=== PATIENT | male | born 1955 | race Two or more races ===

== ENCOUNTER 2025-02-12 11:06 | Emergency (ER) | payer MEDICARE, SELFPAY ==
--- NOTE | 2025-02-12 11:10 | CT_ITS ---
WS: [id number] CT HEAD NONCONTRAST HISTORY: Encephalopathy, altered mental status TECHNIQUE: Contiguous axial imaging performed through the brain. Bone and soft tissue windows. Sagittal and coronal reformats reviewed. All CT scans at [facility] use at least one of these dose optimization techniques: automated exposure control; mA and/or kV adjustment per patient size (includes targeted exams where dose is matched to clinical indication); or iterative reconstruction. DLP: 1075.08 mGy.cm COMPARISON: None available. No acute intracranial hemorrhage, midline shift or mass effect. Mild atrophy and moderate small vessel disease. No prior infarcts. There is a small lacunar infarct LEFT periventricular white matter. Ventricles: Normal size with no hydrocephalus. No intra displacement of cerebellar tonsils. Paranasal sinuses: As visualized are clear. Mastoid air cells: Well pneumatized. Calvarium and scalp: Skull is intact with no soft tissue edema or swelling. CT/CT head wo con* [id number] IMPRESSION: 1. No acute intracranial hemorrhage or edema. 2. Mild cerebral and cerebellar atrophy. 3. Moderate small vessel disease.
[2025-02-12 11:11] VITALS: BP 162/65; PULSE 87; RESP 16; TEMP 37.1; O2SAT 100
--- NOTE | 2025-02-12 11:11 | ED_ITS ---
HPI - General Adult 2 General: Chief complaint: Weakness Stated complaint: ams Time Seen by Provider: 02/12/25 11:08 History of Present Illness: 69-year-old man with a history of end-st age renal disease on dialysis who presents to the emergency room by ambulance after dialysis with concerns for confusion. He was not confused today. However the reports that over the last couple weeks when he would complete dialysis he would be mildly confused for about 5 minutes and then improved. He had refused to go to the emergency room until today. However today he has no altered mental status. No fevers. No cough. No chest pain. Related Data Allergies Allergy/AdvReac Type Severity Reaction Status Date / Time No Known Allergies Allergy Verified 02/12/25 11:16 Review of Systems 2 Narrative: Constitutional symptoms: Negative except as documented in HPI. Skin symptoms: Negative except as documented in HPI. Eye symptoms: Negative except as documented in HPI. ENMT symptoms: Negative except as documented in HPI. Respiratory symptoms: Negative except as documented in HPI. Cardiovascular symptoms: Negative except as documented in HPI. Gastrointestinal symptoms: Negative except as documented in HPI. Genitourinary symptoms: Negative except as documented in HPI. Musculoskeletal symptoms: Negative except as documented in HPI. Neurologic symptoms: Negative except as documented in HPI. Psychiatric symptoms: Negative except as documented in HPI. Endocrine symptoms: Negative except as documented in HPI. Physical Exam 2 Narrative: EXAM NARRATIVE: General: Alert, no acute distress. Skin: Warm, dry. Head: Normocephalic, atraumatic. Neck: Supple, trachea midline. Eye: Extraocular movements are intact. Ears, nose, mouth and throat: mucosa moist. Cardiovascular: Regular, Normal peripheral perfusion. Left biceps area AV fistula Respiratory: Lungs are clear to auscultation, respirations are non-labored, breath sounds are equal, Symmetrical chest wall expansion. Gastrointestinal: Soft, Nontender, Non distended Musculoskeletal: Normal ROM, no deformity. Neurological: Alert and oriented, No focal neurological deficit observed. Psychiatric: Cooperative, appropriate mood & affect. Course 2 Vital Signs: Vital signs: Vital Signs Temperature 98.7 F 02/12/25 11:11 Pulse Rate 79 02/12/25 12:11 Respiratory Rate 16 02/12/25 12:11 Blood Pressure 162/65 02/12/25 11:23 Pulse Oximetry 100 02/12/25 12:11 Oxygen Delivery Me thod Room Air 02/12/25 12:11 MDM - General Adult Medical Decision Making Medical decision making: Differential diagnosis including but not limited to and based on the above HPI, review of systems and physical exam: In this patient with altered mental status: Stroke. Hypoglycemia. Metabolic encephalopathy. Infections such as pneumonia, urinary tract infection, Covid-19, Influenza. Electrolyte abnormalities such as hypernatremia. Renal failure / uremia. Hepatic encephalopathy. Hypoxemia. Hypercapnic respiratory failure. Psychosis. Drug or alcohol intoxication. Medication overdose. Orders placed to evaluate differential diagnosis based on the above differential, HPI and physical exam Lab Review: Laboratory results were reviewed and interpreted by myself the emergency room physician. No leukocytosis. Hemoglobin is 9.8 which would be expected in the dialysis patient. Does not require acute transfusion. BUN and creatinine are 14 and 2.1 which again would be expected in a dialysis patient. Potassium is a little bit low at 3.1 and again just after dialysis this would be expected. CT head: No acute intracranial process. no intracranial hemorrhage, no evidence of infarct. no evidence of acute fracture.This was reviewed and interpreted by myself the ER physician. I reviewed the patient's medical record. Reexamination: Patient remained stable. No increased work of breathing. No altered mental status. No focal motor deficits. Assessment and plan: End-stage renal disease on dialysis Episodes of altered mental status - Discharged home - Discussed findings and plan with patient. Answered any questions. - All laboratory values were reviewed and interpreted personally by myself, the ER physician - All imaging was reviewed and interpreted personally by myself, the ER physician. - Evaluation and treatment of this problem were appropriate in the emergency setting Lab Data 02/12/25 11:46 02/12/25 11:[address] 02/12/25 11:10 IMPRESSION: 1. No acute intracranial hemorrhage or edema. 2. Mild cerebral and cerebellar atrophy. 3. Moderate small vessel disease. Laboratory Results WBC 5.78 10^3/uL (3.29-11.43) 02/12/25 11:46 RBC 3.24 10^6/uL (3.85-5.65) L 02/12/25 11:46 Hgb 9.80 g/dL (11.27-16.99) L 02/12/25 11:46 Hct 29.4 % (37-53) L 02/12/25 11:46 MCV 90.7 fl (82-101) 02/12/25 11:46 MCH 30.2 pg (27-33) 02/12/25 11:46 MCHC 33.3 g/dL (30-55) 02/12/25 11:46 RDW 13.1 % (12.1-15.1) 02/12/25 11:46 Plt Count 220 10^3/cmm (157-399) 02/12/25 11:46 MPV 9.0 fL (7.4-10.4) 02/12/25 11:46 Neut % (Auto) 66.6 % 02/12/25 11:46 Lymph % (Auto) 20.4 % 02/12/25 11:46 [place] % (Auto) 9.0 % 02/12/25 11:46 Eos % (Auto) 2.6 % 02/12/25 11:46 Baso % (Auto) 0.9 % 02/12/25 11:46 Neut # (Auto) 3.85 10^3/uL (1.8-7.7) 02/12/25 11:46 Lymph # (Auto) 1.2 10^3/uL (0.8-4.8) 02/12/25 11:46 [place] # (Auto) 0.5 10^3/uL (0.2-0.9) 02/12/25 11:46 Eos # (Auto) 0.2 10^3/uL (0.0-0.8) 02/12/25 11:46 Baso # (Auto) 0.1 10^3/uL (0.0-0.1) 02/12/25 11:46 Nucleated RBC % (auto) 0 % 02/12/25 11:46 Nucleated RBCs # 0.0 /100WBC 02/12/25 11:46 Sodium 139 mmol/L (136-145) 02/12/25 11:46 Potassium 3.1 mmol/L (3.5-5.1) L 02/12/25 11:46 Chloride 95 mmol/L (98-107) L 02/12/25 11:46 Carbon Dioxide 34 mmol/L (22-29) H 02/12/25 11:46 Anion Gap 13.1 (5-19) 02/12/25 11:46 BUN 14 mg/dL (8-23) 02/12/25 11:46 Creatinine 2.1 mg/dL (0.7-1.2) H 02/12/25 11:46 GFR Calculation 31.5 mL/min (90-130) L 02/12/25 11:46 Glucose 126 mg/dL (65-115) H 02/12/25 11:46 Calculated Osmolality 290 mOsm/kg (285-295) 02/12/25 11:46 Calcium 8.6 mg/dL (8.5-10.5) 02/12/25 11:46 Total Bilirubin 0.3 mg/dL (0.15-1.2) 02/12/25 11:46 AST 15 U/L (0-40) 02/12/25 11:46 ALT 12 U/L (0-41) 02/12/25 11:46 Alkaline Phosphatase 136 U/L (40-130) H 02/12/25 11:46 Total Protein 7.0 g/dL (6.6-8.7) 02/12/25 11:46 Albumin 3.8 g/dL (3.5-5.2) 02/12/25 11:46 Globulin 3.2 g/dL (1.3-4.6) 02/12/25 11:46 All radiology interpretation(s) finalized by discharge Discharge Plan Discharge Patient Disposition: Home Clinical Impression: Altered mental status, End stage renal disease on dialysis Condition: Stable Discharge Orders: Discharge ED (Routine); Ordered 02/12/25 Ordered By: Harriet Hensley Discharge Diet: Usual diet Discharge Activity: Increase activity as tolerated Patient Instructions: Opioid Safety, Pain Management, Patient Portal & Oleg Instructions Activity Restrictions/Additional Instructions: Thank you for choosing [facility] for your healthcare needs today. You have been screened and evaluated and felt safe for discharge. Health conditions do change or evolve sometimes and as such it is important that you follow up with your Primary Doctor to be re checked, 3-5 days is a general good time frame for follow up. You are always welcome to return to the ED for re assessment if your symptoms are worsening or you have new concerns Print Language: Slovak Coding Level of Care Code ED Circulation Director for Carson Randle
--- NOTE | 2025-02-12 11:15 | ECG_ITS ---
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 Measurements Intervals [place] Rate: 86 P: 58 MD: 192 QRS: 63 QRSD: 104 T: 116 QT: 430 QTc: 515 Interpretive Statements SINUS RHYTHM WITH OCCASIONAL SUPRAVENTRICULAR PREMATURE COMPLEXES POSSIBLE LEFT ATRIAL ENLARGEMENT [-0.1mV P-WAVE IN V1/V2] POSSIBLE RIGHT VENTRICULAR CONDUCTION DELAY [RSR (QR) IN V1/V2] LEFT VENTRICULAR HYPERTROPHY AND ST-T CHANGE [VOLTAGE CRITERIA PLUS ST/T ABNORMALITY] INFERIOR MYOCARDIAL INFARCTION , PROBABLY OLD [40+ ms Q WAVE AND/OR ST/T ABNORMALITY IN II/aVF] No previous ECG available for comparison Electronically Signed On 02-14-2025 08:46:27 CDT by Evangelista Radford M.D. [email or web address] [id number]
[2025-02-12 11:23] VITALS: BP 162/65; PULSE 82; RESP 18; O2SAT 100
--- OUTSIDE RECORDS SUMMARY | 2025-02-12 11:38 | XMS_ITS | Encounter Summary ---
Author Organization [facility], [facility] Address [address] [place] [address] Phone Care Team Providers Care Tug Master Name Role Phone Bc Sadler MD Primary Care Provider [phone] Encounter Details Date Type Department Care Team (Late st Contact Info) Description 02/10/2025 [facility] [address] [place] [address] Malia Shen MD [address] [place] [address] End stage renal disease; Dependence on renal dialysis Social History Tobacco Use Types Packs/Day Years Used Date Smoking Tobacco: Never Smokeless Tobacco: Never Alcohol Use Standard Drinks/Week Comments Never 0 (1 standard drink = 0.6 oz pur e alcohol) Sex and Gender Information Value Date Recorded Sex Assigned at Not on file Legal Sex Male 10:12 AM EDT Gender Identity Not on file Sexual Orientation Not on file documented as of this encounter Miscellaneous Notes * Dialysis Note - Malia Shen MD - 02/10/2025 12:00 AM CDT Patient: Rashel العراقي, 1955, 69y, M Dialysis Location: [facility] Attending Hand Inspector: Malia Shen Service Date: 02/10/2025 Service Provider: Malia Shen MD I met face to face with the patient today. OVERVIEW The patient presented with ESRD on dialysis Primary cause of renal failure: Type 2 diabetes mellitus with diabetic chronic kidney disease Comments: He has been feeling bad at the end of dialysis and the next day. He has been having fluidchallenges that are making him feel bad. Not to fluid challenge and he is feeling better. Will decrease time by 15 minutes as kt/v is very good. Repeat kt/v after time change. Medications and labs reviewed. LAST HOSPITALIZATION Discharge Diagnosis: I25.810 Atherosclerosis of coronary artery bypass graft(s) without angina pectoris Admission Date 01/17/24 Discharge Date 01/31/24 DIALYSIS PRESCRIPTION IHD 3x Week Start date: 01/29/25 Dialyzer: 180NRe Optiflux BFR: 450 DFR: Autoflow 2 Potassium: 2.0 Sodium: 138 EDW: 52.3 Duration: 4:00 Calcium: 2.5 Bicarb: 38 Rx updated on: 01/29/2025 TREATMENT ASSESSMENT Comments: Stable BP Stand Pre 02/07/2025: 155/71 02/05/2025: 161/78 02/03/2025: 153/73 BP Sit Pre 02/07/2025: 163/80 02/05/2025: 124/68 02/03/2025: 159/79 BP Stand Post 02/07/2025: 143/58 02/05/2025: 138/65 02/03/2025: 156/69 BP Sit Post 02/07/2025: 147/68 02/05/2025: 135/67 02/03/2025: 139/59 Tx Duration 02/07/2025: 4:00 02/05/2025: 4:02 02/03/2025: 3:40 Missed Treatments 1 - last 30 days 2 - last 60 days 01/13 - recent FLUID ASSESSMENT Comments: Stable Asa diana EDW (kg) 02/07/2025: 52.3 02/05/2025: 52.3 02/03/2025: 52.3 Weight Pre (kg) 02/07/2025: 53.0 02/05/2025: 52.8 02/03/2025: 53.6 Weight Post (kg) 02/07/2025: 51.3 02/05/2025: 51.8 02/03/2025: 52.7 PWV (kg) 02/07/2025: -1.0 02/05/2025: -0.5 02/03/2025: 0.4 UF Rate (mL/kg/hr) 02/07/2025: 8.3 02/05/2025: 4.8 02/03/2025: 4.7 ADEQUACY ASSESSMENT Comments: Stable trend As above spKt/V, URR 01/27/2025: 2.26, 85.0 01/03/2025: 1.93, 82.0 12/04/2024: 1.96, 81.0 ACCESS ASSESSMENT Access Type: AVGraft Access SubType: Synthetic - Standard (PTFE) Access Status: Active (In Use) - 09/18/2023 Access Location: Left Upper Arm Created: 09/18/2023 Flow 12/02/2024: 1700 11/14/2024: 1330 09/13/2024: 1238 Vascular access reviewed. Current access is permanent and functioning well. ANEMIA ASSESSMENT Comments: On IV iron and SARAI protocol HGB, TSAT 02/05/2025: 9.6, - 01/27/2025: 9.3, 38.0 01/08/2025: 10.0, - Ferritin 12/04/2024: 697.0 08/28/2024: 758.0 Iron Sucrose (Venofer) (mg) 02/03/2025: 50 01/27/2025: 50 01/06/2025: 50 BMM ASSESSMENT Comments: Phos is better. Monitor trend. PTH stable. On calcitriol. PTH, Intact 12/04/2024: 547.0 08/28/2024: 548.0 Calcium, Phosphorus 01/27/2025: 8.6, 5.2 01/06/2025: 8.4, 4.9 12/04/2024: 8.5, 6.0 Vitamin D (Calcitriol) Oral (mcg) 02/07/2025: 0.5 02/05/2025: 0.5 02/03/2025: 0.5 NUTRITION ASSESSMENT Comments: Stable. Potassium, Albumin 01/27/2025: 5.3, 3.7 01/06/2025: 4.9, 3.7 12/04/2024: 4.7, 3.7 eNPCR 01/03/2025: 0.61 12/04/2024: 1.4 11/04/2024: 1.82 DIAGNOSIS Chief Complaint: N18.6 End stage renal disease Comments: 05/15/2024: Following problem list carried forward from rounding notes from previous facility in [place]: problem list: ESRD: HD TTS, due to hypertension -. Coronary artery disease: Status post NSTEMI, and CABG x3 on 01/21/2024 , -. Mitral regurgitation: Initially severe on TTE but intraoperatively was 1+ so no intervention done -. Paroxysmal atrial fibrillation: -. Started on amiodarone and Toprol and Eliquis twice daily -. CHF: EF of 25 to 30%, due to ischemic cardiomyopathy, at some point we need ICD placement versuslife vest -. Hypertension: On medication -. Colostomy: Family social history: No family history of ESRD Does not smoke or drink Patient data updated 02/10/2025 at 10:39 AM Signed By: Malia Shen MD on 02/10/2025 10:42:26 AM documented in this encounter Plan of Treatment Not on file documented as of this encounter Visit Diagnoses Diagnosis End stage renal disease Dependence on renal dialysis documented in this encounter Care Teams Tug Master Relationship Specialty Start Date End Date Bc Sadler MD [address] [facility] [address] [place] [phone] PCP - General Nephrology 12/05/23 documented as of this encounter
--- OUTSIDE RECORDS SUMMARY | 2025-02-12 11:38 | XMS_ITS | Encounter Summary ---
Author Organization [facility], [facility] Address [address] [place] [address] Phone Care Team Providers Care Binding Nicker Name Role Phone Bc Sadler MD Primary Care Provider [phone] Encounter Details Date Type Department Care Team (Late st Contact Info) Description 02/05/2025 Orders Only [facility] [address] [place] [address] Malia Shen MD [address] [place] [address] Social History Tobacco Use Types Packs/Day Years [...] on file documented as of this encounter Plan of Treatment Not on file documented as of this encounter Procedures Procedure Name Priority Date/Time Associated Diagnosis Comments HEMATOLOGY Routine 02/05/2025 documented in this encounter Results * (ABNORMAL) HEMATOLOGY (02/05/2025) Hemoglobin 9.6(L) 14.0 - 18.0 g/dL [facility] Hemoglobin x 3 28.8(L) 42.0 - 54.0 % [facility] Reticulocyte Hemoglobin 31.4 25.4 - 31.8 pg [facility] 02/05/2025 02/06/2025 9:4 7 AM CDT Narrative [facility] - 02/06/2025 Unless otherwise specified, test(s) performed at: [facility], [address] [place], [place] [id number] COREMAKER PIPE: Abel Robins M.D. For any questions, please call customer service at FREQUENCY:OTHER Resulting Agency Comment Specimen source: Blood Malia Shen MD LAB BLOOD ORDERABLES Final Re sult [facility] See order comments or contact performing lab Unknown, [place] documented in this encounter Visit Diagnoses Not on filedocumented in this encounter Care Teams Binding Nicker Relationship Specialty Start Date End Date Bc Sadler MD [address] [address] PCP - General Nephrology 12/05/23 documented as of this encounter
--- OUTSIDE RECORDS SUMMARY | 2025-02-12 11:38 | XMS_ITS | Encounter Summary ---
Author Organization [facility] Address [address] [facility] [address] [place] [address] Phone Care Team Providers Care Sql Database Developer Name Role Phone Bc Sadler MD Primary Care Provider [phone] Reason for Visit * Reason Comments Med Refill Encounter Details Date Type Department Care Team (Late st Contact Info) Description 02/27/2024 Refill [facility] [address] [facility] [address] [place] [address] Bc Sadler MD [address] [facility] [address] [place] [address] Social History Tobacco Use Types Packs/Day Years [...] documented as of this encounter Visit Diagnoses Not on filedocumented in this encounter Care Teams Sql Database Developer Relationship Specialty Start Date End Date Bc Sadler MD [address] [facility] [address] [place] [address] PCP - General Nephrology 12/05/23 documented as of this encounter
--- OUTSIDE RECORDS SUMMARY | 2025-02-12 11:38 | XMS_ITS | Clinical Summary ---
Author Organization 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 4 Active sodium bicarbonate 650 mg tablet Take 650 mg by mouth 2 times daily. 4 Active metoprolol succinate (TOPROL XL) 25 mg Extended Release 24 hour tablet Take 25 mg by mouth daily. Active metoprolol succinate (TOPROL XL) 25 mg Extended Release 24 hour tablet Take 25 mg by mouth 2 times daily. 3 Active aspirin (ECOTRIN EC) 81 mg Tablet, Delayed Release (E.C.) Take 81 mg by mouth daily. Active clopidogreL (PLAVIX) 75 mg Tablet Take 75 mg by mouth daily. 3 Active amLODIPine (NORVASC) 5 mg tablet Take 6 mg by mouth daily. 3 Active apixaban (Eliquis) 2.5 mg tablet Take 2.5 mg by mouth 2 times daily. Active amiodarone (CORDARONE) 200 mg tablet Take 200 mg by mouth daily. Active dorzolamide-cristian loL (COSOPT) 22.3-6.8 mg/mL solution Administer 1 Drop in right eye 2 times daily. 10 mL 1 5 Active brimonidine (ALPHAGAN) 0.2 % solution Administer 1 Drop in right eye every 8 hours. 5 mL 1 5 Active latanoprost (XALATAN) 0.005 % solution Administer 1 Drop in right eye daily at bedtime. 2.5 mL 1 5 Active prednisoLONE acetate (Pred Forte) 1 % suspension Administer 1 Drop in left eye 4 times daily. 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 1 Drop Left Eye ONE TIME ONLY 01/09/2025 Active Active Problems No known active problems Encounters Date Type Department Care Team Description 01/13/2025 External Device Data STL ABSTRACTION Provider, Abstract 01/09/2025 10:00 AM CDT Office Visit [facility] [place] [address] [place] [phone] Mary Rosa MD 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) 12/24/2024 7:20 AM CDT Office Visit [facility] [place] [address] [place] [phone] Mary Rosa MD 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) 12/23/2024 12:45 PM CDT - 12/23/2024 2:10 PM CDT Surgery [facility] [place] [address] [place] [phone] Mary Rosa MD PARS PLANA VITRECTOMY WITH LASER 12/23/2024 11:39 AM CDT Anesthesia Event [facility] [address] [place] [phone] Hernesto Man MD 12/23/2024 8:12 AM CDT - 12/23/2024 12:50 PM CDT Hospital Encounter [facility] [address] [place] [phone] Mary Rosa MD Rhegmatogenous retinal detachment of left eye Discharge Disposition: Home or Self Care 12/19/2024 Telephone [facility] [place] [address] [phone] Mary Rosa MD Surgery Talk 12/18/2024 Telephone [facility] [place] [address] [phone] Mary Rosa MD Information (Spoke with Shelley uriostegui pt - called [facility] wood office and gave response in voicemail to clinic- question of what procedure pt was having: Retrobulbar block (biggest risk of bleeding) then vitrectomy. 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); Type 2 diabetes mellitus with both eyes affected by moderate nonproliferative retinopathy without macular edema, without long-term current use of insulin ([facility]); Combined forms of age-related cataract of both eyes 12/12/2024 Orders Only [facility] [place] [address] [phone] Mary Rosa MD 11/18/2024 External Device Data STL ABSTRACTION Provider, Abstract from Last 3 Months Family History Medical History Relation Name Comments Cataract Mother Relation Name Status Comments Mother Social History Tobacco Use Types Packs/Day Years Used Date Smoking Tobacco: Never Smokeless Tobacco: Never Tobacco Cessation:Counseling Given: Not Answered Alcohol Use Standard Drinks/Week Comments Never 0 (1 standard drink = 0.6 oz pur e alcohol) Feeling Safe Answer Date Recorded Are you in a relationship wi th someone who hurts you emotionally and/or physically? No 12/23/2024 Sex and Gender Information Value Date Recorded Sex Assigned at Not on file Legal Sex Male 12:55 PM [employer] Gender Identity Not on file Sexual Orientation Not on file Last Filed Vital Signs Vital Sign Reading Time Taken Comments Blood Pressure 178/93 12/23/2024 12:35 PM CDT Pulse 79 12/23/2024 12:35 PM CDT Temperature 36.4 C (97.5 F) 12/23/2024 12:35 PM CDT Respiratory Rate - - Oxygen Saturation 99% 12/23/2024 12:35 PM CDT Inhaled Oxygen Concentration - - Weight 52.6 kg (116 lb) 12/23/2024 10:26 AM CDT Height 160 cm (5' 3 ) 12/23/2024 10:26 AM CDT Body Mass Index 20.55 12/23/2024 10:26 AM CDT Plan of Treatment Upcoming Encounters Date Type Department Care Team (Late st Contact Info) Description 02/20/2025 10:20 AM CDT Office Visit [facility] [place] [address] [phone] Mary Rosa MD [address] [place] [phone] Health Maintenance Due Date Last Done Comments DIABETES MICROALBUMIN ANNUAL SCREEN 1973 LDL CHOLESTEROL ANNUAL 1973 DTAP/TDAP/TD VACCINES (1 - Tdap) 1974 PNEUMOCOCCAL VACCINE 50+ YEA RS (1 of 2 - PCV) 1974 COLORECTAL SCREENING 2000 Colorectal Cancer Screening 2000 FIT-DNA Q 3 years 2000 FIT/FOBT Q 1 year 2000 Flex Sig/CT Colonography Q 5 years 2000 ZOSTER VACCINE (1 of 2) 2005 RSV VACCINE (60+ or ) (1 - Risk 60-74 years 1-dose series) 2015 DIABETES ANNUAL FOOT EXAM 07/21/2021 07/21/2020 INFLUENZA VACCINE (#1) 2025 DIABETES HBA1C Q 6 MONTHS 02/28/2025 08/28/2024, DIABETES ANNUAL RETINAL EXAM 01/09/2026, 01/09/2025, 01/09/2025, Additional history exists Medical Devices Implanted Type Area Package Center Supervisor Device Identifier Shelf Expiration Date Model / Serial / Lot Oil Slc 8.5ml [id number] - [id number] Implanted:Qty: 1 on 12/23/2024 by Mary Rosa MD at [facility] Left: Eye I[facility] 05/24/2027 [id number] / [id number] / Procedures Procedure Name Priority Date/Time Associated Diagnosis Comments EYE DROPS Routine 01/09/2025 10:31 AM CDT 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 EYE DROPS Routine 12/24/2024 7:46 AM CDT 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 DE REPAIR RETINAL DETACHMENT SCLERAL BUCKLING 12/23/2024 12:45 PM CDT Rhegmatogenous retinal detachment of left eye DE VITRECTOMY [facility] PARS PLNA FOCAL ENDOLASER PC 12/23/2024 12:45 PM CDT Rhegmatogenous retinal detachment of left eye POC SODIUM, POTASSIUM, AND H&H Routine 12/23/2024 10:57 AM CDT POC GLUCOSE Routine 12/23/2024 10:55 AM CDT FLUORESCEIN ANGIOGRAPHY - OU - BOTH EYES Routine 12/12/2024 3:49 PM CDT Type 2 diabetes mellitus with both eyes affected by moderate nonproliferative retinopathy without macular edema, without long-term current use of insulin ([facility]) OCT, RETINA - OU - BOTH EYES Routine 12/12/2024 1:38 PM CDT Type 2 diabetes mellitus with both eyes affected by moderate nonproliferative retinopathy without macular edema, without long-term current use of insulin (CMS/HCC) 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 EYE DROPS Routine 12/12/2024 1:01 PM CDT Type 2 diabetes mellitus with both eyes affected by moderate nonproliferative retinopathy without macular edema, without long-term current use of insulin (CMS/HCC) 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 from Last 3 Months Results * EYE DROPS (01/09/2025 10:31 AM CDT) Narrative [facility] - 01/09/2025 10:43 AM CDT Medications Eye Drops: 1 Drop proparacaine (OPHTHAINE) 0.5% ophthalmic solution Route: Left Eye NDC: 99095-277-55, Lot: [id number], Expiration date: 07/26/2026 1 Drop proparacaine (OPHTHAINE) 0.5% ophthalmic solution Route: Right Eye NDC: 50230-296-44, Lot: [id number], Expiration date: 07/26/2026 1 Drop tropicamide (MYDRIACYL) 1% ophthalmic solution Route: Left Eye NDC: 98055-361-90, Lot: [id number], Expiration date: 10/23/2025 1 Drop phenylephrine (AK-DILATE, MYDFRIN) 2.5% ophthalmic solution Route: Left Eye ND: 79225-647-32, Lot: [id number], Expiration date: 11/24/2025 us Mary Rosa MD OPHTH CLINIC PROCEDURES F inal Result [facility] CLIA# [id number] [address] [place] [address] * EYE DROPS (12/24/2024 7:46 AM CDT) Narrative [facility] - 12/24/2024 7:48 AM CDT Medications Eye Drops: 1 Drop proparacaine (OPHTHAINE) 0.5% ophthalmic solution Route: Left Eye [facility]: 14447-540-20, Lot: [id number], Expiration date: 06/25/2025 Mary Rosa MD OPH CLINIC PROCEDURES F inal Result Performing Organization Address City/[facility]/ZIP Co de Phone Number [facility] CLIA# [id number] [address] [place] [address] * (ABNORMAL) POC SODIUM, POTASSIUM, AND H&H (12/23/2024 10:57 AM CDT) SODIUM POC 142 138 - 146 mmol/L 12/23/2024 10:57 AM CDT [facility] POTASSIUM POC 4.8 3.5 - 4.9 mmol/L 12/23/2024 10:57 AM CDT [facility] HEMOGLOBIN POC 11.2(L) 12.0 - 17.0 g/dL 12/23/2024 10:57 AM CDT [facility] HEMATOCRIT POC 33(L) 38 - 51 % 12/23/2024 10:57 AM CDT [facility] Blood 12/23/2024 10:5 7 AM CDT 12/23/2024 11:04 AM CDT Narrative [facility] - 12/23/2024 10:57 AM CDT Point of Care Testing methodology intended for rapid screening purposes only. Actual hemoglobin results may vary up to +/- 3 g/dL. Clinical correlation required. Mary Rosa MD POINT OF CARE TESTING Fin al Result [facility] CLIA# [id number] [address] [place] [address] * (ABNORMAL) POC GLUCOSE (12/23/2024 10:55 AM CDT) GLUCOSE POC 100(H) 74 - 99 mg/dL 12/23/2024 10:55 AM CDT [facility] SPECIMEN SOURCE, GLUCOSE POC Venous 12/23/2024 10:55 AM CDT [facility] Blood, whole 12/23/2024 10:5 5 AM CDT 12/23/2024 11:09 AM CDT Mary Rsoa MD POINT OF CARE TESTING Fin al Result Performing Organization Address [facility] Co de Phone Number [facility] CLIA# [id number] [address] [address] * FLUORESCEIN ANGIOGRAPHY - OU - BOTH EYES (12/12/2024 3:49 PM CDT) Narrative [facility] OPHTHALMOLOGY ORDERS - 12/12/2024 3:49 PM CDT Optical coherence tomography ordered to evaluate the status of the macula: Right Eye: Moderate non-proliferative diabetic retinopathy, no evidence of neovascularization. Minimal leakage in the macula. Left Eye: Detached inferiorly, involves the macula. Moderate non-proliferative diabetic retinopathy. Mary Rosa MD OPHTH PHOTOGRAPHY Final R esult Performing Organization Address [facility]/[place] de Phone Number [facility] OPHTHALMOLOGY ORDERS * OCT, RETINA - OU - BOTH EYES (12/12/2024 1:38 PM CDT) Narrative [facility] OPHTHALMOLOGY ORDERS - 12/12/2024 2:01 PM CDT Optical coherence tomography ordered to evaluate the status of the macula: Right Eye: flat, attached, regular foveal contour Left Eye: detached Mary Rosa MD OPHTH TOMOGRAPHY Final Re sult Performing Organization Address [facility] Co de Phone Number [facility] OPHTHALMOLOGY ORDERS * EYE DROPS (12/12/2024 1:01 PM CDT) Narrative [facility] - 12/12/2024 2:01 PM CDT Medications Eye Drops: 1 Drop phenylephrine (AK-DILATE, MYDFRIN) 2.5% ophthalmic solution Route: Right Eye NDC: 26174-500-58, Lot: [id number], Expiration date: 01/11/2026 2 Drop proparacaine (OPHTHAINE) 0.5% ophthalmic solution Route: Both Eyes NDC: 60683-550-34, Lot: [id number], Expiration date: 08/14/2026 1 Drop tropicamide (MYDRIACYL) 1% ophthalmic solution Route: Right Eye NDC: 17594-706-06, Lot: [id number], Expiration date: 11/11/2025 Mary Rosa MD OPH CLINIC PROCEDURES F inal Result [facility] [id number] [address] [place] [address] from Last 3 Months Insurance [employer] [facility] Advance Directives For more information, please contact: [phone] * Full Code (Latest Code Status on File) Date Activated Date Inactivated Comments 12/23/2024 10:19 AM 12/23/2024 2:53 PM
--- OUTSIDE RECORDS SUMMARY | 2025-02-12 11:38 | XMS_ITS | Clinical Summary ---
Author Organization [facility] Address [address] [facility] [address] [place] [address] Phone Care Team Providers Care Fine Arts Chair Name Role Phone Bc Sadler MD Primary Care Provider [phone] Allergies No known active allergies Medications metoprolol succinate XL (TOPROL XL) 25 MG 24 hr tablet TAKE 1 TABLET DAILY Active clopidogrel (PLAVIX) 75 MG tablet Take 1 tablet (75 mg total) by mouth 1 (one) time each day TAKE 1 TABLET DAILY 90 tablet 3 3 Active Additional Information Patient not taking.Reported on 12/31/2023 sodium bicarbonate 650 MG tablet TAKE 2 TABLETS TWICE DAILY 360 tablet 1 4 Active Additional Information Patient not taking.Reported on 12/31/2023 amLODIPine (NORVASC) 5 MG tablet Take 1 tablet (5 mg total) by mouth 1 (one) time each day 90 tablet 4 Active Additional Information Patient not taking.Reported on 12/31/2023 rosuvastatin (CRESTOR) 10 MG tablet TAKE 1 TABLET AT BEDTIME Active Patiromer Sorbitex Calcium 8.4 g pack Take 8.4 g by mouth 1 (one) time each day 30 each 3 4 Active Additional Information Patient not taking.Reported on 12/31/2023 furosemide (LASIX) 80 MG tablet Take 1 tablet (80 mg total) by mouth in the morning and 1 tablet (80 mg total) in the evening. 60 tablet 11 4 Active traZODone (DESYREL) 100 MG tablet Take 1 tablet (100 mg total) by mouth every night 30 tablet 4 Active Active Problems Problem Noted Date Diagnosed Date Stage 5 chronic kidney disease 07/18/2023 Coronary arteriosclerosis 05/01/20232022 Fatigue 05/01/2023 05/01/2023 Renal hypertension 05/01/2023 05/01/2023 Type 2 diabetes mellitus 05/01/2023 023 Dyslipidemia 05/01/2023 Ischemic cardiomyopathy 05/01/2023 Mitral valve regurgitation 05/01/2023 Encounters Date Type Department Care Team Description 02/10/[address] [place], [place] [address]rology [facility], [facility] [address] [place] [address] Malia Shen MD End stage renal disease; Dependence on renal dialysis 02/05/2025 [facility], [facility] [address] [place] [address] Malia Shen MD 02/03/[address] [place] [address], [facility] [address] [place] [address] Haleigh Mason NP End stage renal disease; Dependence on renal dialysis; Type 2 diabetes mellitus with diabetic chronic kidney disease 02/01/[address] [place] [address] [facility], [facility] [address] [place] [address] Brooke Coon NP End stage renal disease; Dependence on renal dialysis; Type 2 diabetes mellitus with diabetic chronic kidney disease 01/27/2025 [facility], [facility] [address] [place] [address] Malia Shen MD 01/15/2025 Treatment [facility] [address] [facility] [address] [place] [address] Bc Sadler MD 01/08/2025 Orders Only [facility], [facility] [address] [place] [address] Malia Shen MD 01/06/2025 Orders Only [facility], [facility] [address] [place] [address] Malia Shen MD 01/06/[address] [place], [place] [address]rology [facility], [facility] [address] [place] [address] Haleigh Mason NP End stage renal disease; Dependence on renal dialysis; Type 2 diabetes mellitus with diabetic chronic kidney disease 01/03/2025 [facility], [facility] [address] [place] [address] Malia Shen MD 01/01/2025 Orders [facility], [facility] [address] [place] [address] Malia Shen MD 12/30/2024 Treatment [facility], [facility] [address] [place] [address] Brooke Coon NP End stage renal disease; Dependence on renal dialysis 12/18/2024 [facility], [facility] [address] [place] [address] Malia Shen MD 12/18/2024 Documentation Only [facility], [facility] [address] [place] [address] Sobeida Colon MA 12/16/[address] [place] [address], [facility] [address] [place] [address] Haleigh Mason NP End stage renal disease; Dependence on renal dialysis 12/11/2024 [facility], [facility] [address] [place] [address] Malia Shen MD 12/11/[address] [place], [place] [address]rology [facility], [facility] [address] [place] [address] Malia Shen MD End stage renal disease; Dependence on renal dialysis; Type 2 diabetes mellitus with diabetic chronic kidney disease 12/04/2024 Orders Only [facility], [facility] [address] [place] [address] Malia Shen MD 12/02/[address] [place], [place] [address]rology [facility], [facility] [address] [place] [address] Haleigh Mason NP End stage renal disease; Dependence on renal dialysis 11/24/2024 [facility] [address] [place] [address] Haleigh Mason NP End stage renal disease; Dependence on renal dialysis 11/20/2024 Orders Only [facility], [facility] [address] [place] [address] Malia Shen MD 11/20/2024 Treatment [facility], [facility] [address] [place] [address] Malia Shen MD End stage renal disease; Dependence on renal dialysis 11/18/2024 Telephone [facility], [facility] [address] [place] [address] Malia Shen MD 11/14/2024 Orders Only [facility], [facility] [address] [place] [address] Malia Shen MD from Last 3 Months Family History Medical History Relation Comments Cancer Brother Hypertension Brother Diabetes Sister Relation Status Comments Brother Sister Social History Tobacco Use Types Packs/Day Years [...] Sign Reading Time Taken Comments Blood Pressure 156/75 12/31/2023 1:47 PM CDT Pulse 81 12/31/2023 1:47 PM CDT Temperature - - Respiratory Rate - - Oxygen Saturation - - Inhaled Oxygen Concentration - - Weight 56.9 kg (125 lb 6.4 oz) 12/31/2023 1:45 P M CDT Height 160 cm (5' 3 ) 12/31/2023 1:45 PM CDT Body Mass Index 22.21 12/31/2023 1:45 PM CDT Plan of Treatment Health Maintenance Due Date Last Done Comments Pneumococcal Vaccine: 50+ Ye ars (1 of 2 - PCV) 1974 Hepatitis B Vaccine (1 of 5 - Risk Dialysis 4-dose series) 1975 Colorectal Cancer Screening: Annual FOBT 2004 Colorectal Cancer Screening: Colonoscopy 2004 Colorectal Cancer Screening: Sigmoidoscopy 2004 Diabetes: Pedal Pulse Checked 03/14/2023 Diabetes: Sensory Foot Exam 03/14/2023 Diabetes: Visual Foot Exam 03/14/2023 Diabetes: Hemoglobin A1C 11/28/2024 025, 05/29/2024, 05/13/2024, Additional history exists Influenza Vaccine (#1) 2025 03/25/2024 Diabetes: Ophthalmology Exam 12/12/2025 12/12/2024 Procedures Procedure Name Priority Date/Time Associated Diagnosis Comments HEMATOLOGY Routine 02/05/2025 [facility] RESULTS Routine 01/27/2025 HD KINETICS Routine 01/27/2025 POST CHEMISTRY Routine 01/27/2025 IMMUNO CHEMISTRY Routine 01/27/2025 CHEMISTRY Routine 01/27/2025 HEMATOLOGY Routine 01/27/2025 HEMATOLOGY Routine 01/08/2025 IMMUNO CHEMISTRY Routine 01/06/2025 CHEMISTRY Routine 01/06/2025 HEMATOLOGY Routine 01/06/2025 [facility] RESULTS Routine 01/03/2025 HD KINETICS Routine 01/03/2025 POST CHEMISTRY Routine 01/03/2025 CHEMISTRY Routine 01/03/2025 HEMATOLOGY Routine 01/01/2025 HEMATOLOGY Routine 12/18/2024 HEMATOLOGY Routine 12/11/2024 [facility] RESULTS Routine 12/04/2024 CHEMISTRY Routine 12/04/2024 HD KINETICS Routine 12/04/2024 POST CHEMISTRY Routine 12/04/2024 IMMUNO CHEMISTRY Routine 12/04/2024 CHEMISTRY Routine 12/04/2024 HEMATOLOGY Routine 12/04/2024 HEMATOLOGY Routine 11/20/2024 HEMATOLOGY Routine 11/14/2024 SPECIAL CHEMISTRY Routine 08/28/2024 from Last 3 Months or Most Recently Relevant to Health Maintenance Results * (ABNORMAL) HEMATOLOGY (02/05/2025) Only the most recent of10 resultswithin the time period is included. Hemoglobin 9.6(L) 14.0 - 18.0 g/dL [facility] Hemoglobin x 3 28.8(L) 42.0 - 54.0 % [facility] Reticulocyte Hemoglobin 31.4 25.4 - 31.8 pg [facility] 02/05/2025 02/06/2025 9:4 7 AM CDT Narrative [facility] - 02/06/2025 Unless otherwise specified, test(s) performed at: [facility], [address] [place], [place] [id number] RF DESIGN ENGINEER: Abel Robins M.D. For any questions, please call customer service at FREQUENCY:OTHER Resulting Agency Comment Specimen source: Blood us Malia Shen MD LAB BLOOD ORDERABLES Final Re sult Performing Organization Address [facility] de Phone Number [facility] See order comments or contact performing lab Unknown, [place] * (ABNORMAL) HD KINETICS (01/27/2025) Only the most recent of3 resultswithin the time period is included. % Urea Reduction 85(H) 65 - 80 % [facility] 01/27/2025 01/28/2025 2:0 4 PM CDT Narrative Resulting Agency Comment Specimen source: Plasma us Malia Shen MD LAB BLOOD ORDERABLES Final Re sult Performing Organization Address [facility] de Phone Number [email or web address] See order comments or contact performing lab Unknown, [place] * POST CHEMISTRY (01/27/2025) Only the most recent of3 resultswithin the time period is included. BUN Post Dialysis 17 6 - 19 mg/dL [facility] 01/27/2025 01/28/2025 2:0 4 PM CDT Narrative [facility] - 01/28/2025 Unless otherwise specified, test(s) performed at: [facility], [address] [place] [id number] RF DESIGN ENGINEER: Abel Robins M.D. For any questions, please call customer service at FREQUENCY:MONTHLY Resulting Agency Comment Specimen source: Plasma Result José Miguel Shen MD LAB BLOOD ORDERABLES Final Re sult Performing Organization Address [facility] de Phone Number [facility] See order comments or contact performing lab Unknown, [place] * IMMUNO CHEMISTRY (01/27/2025) Only the most recent of3 resultswithin the time period is included. Hep B Surface Ag Negative Negative [facility] 01/27/2025 01/28/2025 12: 05 PM CDT Narrative [facility] - 01/28/2025 Unless otherwise specified, test(s) performed at: [facility], [address] [place] [address] RF DESIGN ENGINEER: Abel Robins M.D. For any questions, please call customer service at FREQUENCY:MONTHLY Resulting Agency Comment Specimen source: Serum Malia Shen MD LAB BLOOD ORDERABLES Final Re sult [facility] See order comments or contact performing lab Unknown, [place] * (ABNORMAL) [facility] (01/27/2025) Only the most recent of5 resultswithin the time period is included. Pathologist [facility] BUN 115(H) 6 - 19 mg/dL [facility] Creatinine 6.41(H) 0.60 - 1.30 mg/dL [facility] BUN/Creatinine Ratio 17.9 10.0 - 20.0 [facility] Sodium 141 136 - 145 mEq/L [facility] Potassium 5.3(H) 3.5 - 5.1 mEq/L [facility] Chloride 117(H) 96 - 108 mEq/L [facility] Bicarbonate (CO2) 13(L) 22 - 29 mEq/L [facility] Comment: Bicarbonate results less than 14 mEq/L are sufficiently unusual that consideration should be given to repeating prior to treating the patient. Clinical correlation is recommended. Calcium 8.6 8.4 - 10.2 mg/dL [facility] Corrected Calcium 8.8 8.4 - 10.2 mg/dL [facility] Comment: Corrected Calcium is not equivalent to measured Ionized Calcium. Phosphorus 5.2(H) 2.6 - 4.5 mg/dL [facility] Calcium Phosphorus Product 45 0 - 54 [facility] Calcium Phosporus Product, Cor 46 0 - 54 [facility] Total Protein 6.4 6.0 - 8.5 g/dL [facility] Albumin 3.7 3.5 - 5.2 g/dL [facility] Globulin, Total 2.7 2.0 - 4.0 g/dL [facility] A/G Ratio 1.4 1.0 - 2.0 [facility] Glucose 88 70 - 100 mg/dL [facility] Iron 99 45 - 160 mcg/dL [facility] UIBC 159 155 - 355 mcg/dL [facility] TIBC 258 185 - 515 mcg/dL [facility] Iron Saturation (TSat) 38 20 - 55 % [facility] 01/27/2025 01/28/2025 12: 05 PM CDT Narrative [facility] - 01/28/2025 Unless otherwise specified, test(s) performed at: [facility], [address] [place], [place] [id number] RF DESIGN ENGINEER: Abel Robisn M.D. For any questions, please call customer service at FREQUENCY:MONTHLY Resulting Agency Comment Specimen source: Serum Malia Shen MD LAB BLOOD ORDERABLES Final Re sult Performing Organization Address City/[facility]/ZIP Co de Phone Number [facility] See order comments or contact performing lab Unknown, [place] * [facility] Lab Results (01/27/2025) Only the most recent of3 resultswithin the time period is included. Pathologist [facility] spKt/V (Daugirdas II) 2.26 [facility] WSTDKT/V 0.9 [facility] eKt/V ([place]) 1.97 [facility] 01/27/2025 01/27/2025 [facility] Ordering Provider LAB BLOOD ORDERABLES Final Result Performing Organization Address City/[facility]/ZIP Co de Phone Number [facility] Contact Performing lab Unknown, [place] * (ABNORMAL) SPECIAL CHEMISTRY (08/28/2024) Pathologist [facility] Hemoglobin A1C 6.1(H) 4.8 - 5.9 % [employer] 08/28/2024 08/29/2024 10: 13 AM [employer] PREP Narrative [facility] - 08/29/2024 Unless otherwise specified, test(s) performed at: [facility], [address] [place] [id number] RF DESIGN ENGINEER: Abel Robins M.D. For any questions, please call customer service at FREQUENCY:MONTHLY Resulting Agency Comment Specimen source: Blood Malia Shen MD LAB BLOOD BANK TEST ORDERABLE S Final Result [facility] See order comments or contact performing lab Unknown, [place] from Last 3 Months or Most Recently Relevant to Health Maintenance Insurance [facility] Medicare Care Teams Fine Arts Chair Relationship Specialty Start Date End Date Bc Sadler MD [phone] [id number] PCP - General Nephrology 12/05/23
[2025-02-12 11:57] LABS: Hematocrit 29.4 % (37-53); Hemoglobin 9.80 g/dL (11.27-16.99); Mean Corpuscular HGB Conc 33.3 g/dL (30-55); Mean Corpuscular Hemoglobin 30.2 pg (27-33); Mean Corpuscular Volume 90.7 fl (82-101); Nucleated Red Blood Cells % 0 %; Platelet Count 220 10^3/cmm (157-399); Red Blood Count 3.24 10^6/uL (3.85-5.65); White Blood Count 5.78 10^3/uL (3.29-11.43)
[2025-02-12 12:11] VITALS: PULSE 79; RESP 16; O2SAT 100
[2025-02-12 12:14] LABS: Alanine Aminotransferase 12 U/L (0-41); Albumin Level 3.8 g/dL (3.5-5.2); Alkaline Phosphatase 136 U/L (40-130); Anion Gap 13.1 (5-19); Aspartate Amino Transferase 15 U/L (0-40); Blood Urea Nitrogen 14 mg/dL (8-23); Calcium 8.6 mg/dL (8.5-10.5); Carbon Dioxide 34 mmol/L (22-29); Chloride 95 mmol/L (98-107); Globulin 3.2 g/dL (1.3-4.6); Glucose 126 mg/dL (65-115); Osmolality Calculated 290 mOsm/kg (285-295); Potassium 3.1 mmol/L (3.5-5.1); Sodium 139 mmol/L (136-145); Total Protein 7.0 g/dL (6.6-8.7)
[2025-02-12 12:47] VITALS: BP 180/72; PULSE 80; RESP 16; O2SAT 100
== END 2025-02-12 12:48 | disposition home or self-care (01) ==
PROVIDERS: Emergency Provider Emergency Medicine
DX: R41.82 Altered mental status, unspecified (principal); N18.6 End stage renal disease; Z99.2 Dependence on renal dialysis
CPT/HCPCS: 36415; 70450; 80053; 85025; 93005; 99284